=== PATIENT | male | born 1985 | race African-American/Black ===

== ENCOUNTER 2021-03-10 10:08 | Outpatient (REF) | payer OTHER, SELFPAY ==
[2021-03-10 10:40] LABS: MANUAL DIFF FLAG NO
[2021-03-10 10:43] LABS: Basophils Percent Auto 0.2 % (0-2); Eosinophils Absolute Auto 0.2 X10*3/uL (0.0-0.4); Eosinophils Percent Auto 2.1 % (0-4); Hemoglobin 13.9 g/dl (14.0-18.0); Imm Gran Abs Auto 0.03 X10*3/uL (0.00-0.03); Imm Gran Pct Auto 0.3 % (0.0-0.4); Lymphocytes Percent Auto 21.1 % (20-40); Mean Corpuscular HGB Conc 31.6 g/dl (31.0-36.0); Mean Corpuscular Hemoglobin 27.4 pg (27.0-33.0); Mean Corpuscular Volume 86.6 fL (80-98); Mean Platelet Volume 8.2 fL (9.4-12.4); Monocytes Absolute Auto 0.9 X10*3/uL (0.1-1.2); Monocytes Percent Auto 9.4 % (2-11); Neutrophils Absolute Auto 6.3 X10*3/uL (2.0-8.3); Neutrophils Percent Auto 66.9 % (45-73); Platelet Count 220 X10*3/uL (160-400); Red Blood Count 5.08 X10*6/uL (4.60-5.80); Red Cell Distribution Width 13.4 % (11.0-16.0); White Blood Count 9.4 X10*3/uL (4.8-10.8)
[2021-03-10 11:14] LABS: Alanine Aminotransferase 31 U/L (0-40); Albumin Level 4.2 g/dL (3.5-5.0); Alkaline Phosphatase 102 U/L (39-117); Anion Gap 11 (12-20); Aspartate Amino Transferase 19 U/L (5-37); Bilirubin Total 0.7 mg/dL (0.0-1.0); Blood Urea Nitrogen 15 mg/dL (9-16); Calcium 9.1 mg/dL (8.4-10.2); Carbon Dioxide 29 mmol/L (22-29); Chloride 104 mmol/L (96-108); Cholesterol 201 mg/dL; Estimated Glomerular Filt Rate > 60; Glucose Fasting 107 mg/dL (60-99); HDL Cholesterol 34 mg/dL; LDL Cholesterol Calculated 143 mg/dl; Potassium 4.6 mmol/L (3.3-5.1); Sodium 139 mmol/L (135-145); Total Protein 7.1 g/dL (6.5-8.0); Triglycerides 123 mg/dL
[2021-03-10 11:35] LABS: TSH reflex Free T4 2.01 uIU/mL (0.32-4.0); Vitamin D 25-OH Total 22.5 ng/mL (>30)
[2021-03-10 11:48] LABS: Appearance Urine CLEAR; Color Urine YELLOW; Glucose Urine UA NEG (NEG); Leukocyte Esterase Urine NEG (NEG); Nitrite Urine NEG (NEG); Urine Blood NEG (NEG); Urine Ketones NEG (NEG); Urine Protein NEG (NEG-TRACE)
== END 2021-03-10 10:09 | disposition home or self-care (01) ==
LOC: HO.LAB 10:08
PROVIDERS: PCP Internal Medicine; Visit Provider Internal Medicine
DX: Z00.00 Encounter for general adult medical examination without abnormal findings (principal); E55.9 Vitamin D deficiency, unspecified; I10 Essential (primary) hypertension; E78.00 Pure hypercholesterolemia, unspecified
CPT/HCPCS: 36415; 80053; 80061; 81003; 82306; 84443; 85025

== ENCOUNTER 2022-11-27 10:55 | Outpatient (REF) | payer OTHER, SELFPAY ==
[2022-11-27 11:08] LABS: MANUAL DIFF FLAG NO
[2022-11-27 11:30] LABS: Basophils Percent Auto 0.4 % (0-2); Eosinophils Absolute Auto 0.2 X10*3/uL (0.0-0.4); Hematocrit 46.3 % (42.0-52.0); Imm Gran Abs Auto 0.03 X10*3/uL (0.00-0.03); Imm Gran Pct Auto 0.4 % (0.0-0.4); Lymphocytes Absolute Auto 2.1 X10*3/uL (1.2-4.9); Lymphocytes Percent Auto 24.5 % (20-40); Mean Corpuscular HGB Conc 32.4 g/dl (31.0-36.0); Mean Corpuscular Hemoglobin 27.7 pg (27.0-33.0); Mean Corpuscular Volume 85.6 fL (80.0-98.0); Mean Platelet Volume 8.2 fL (9.4-12.4); Monocytes Absolute Auto 0.7 X10*3/uL (0.1-1.2); Monocytes Percent Auto 8.6 % (2-11); Neutrophils Absolute Auto 5.4 x10*3/uL (2.0-8.3); Neutrophils Percent Auto 64.1 % (45-73); Platelet Count 245 X10*3/uL (160-400); Red Blood Count 5.41 X10*6/uL (4.60-5.80); Red Cell Distribution Width 13.3 % (11.0-16.0); White Blood Count 8.4 X10*3/uL (4.8-10.8)
[2022-11-27 12:34] LABS: Appearance Urine Clear; Color Urine Yellow; Glucose Urine UA Negative (Negative); Leukocyte Esterase Urine Negative (Negative); Nitrite Urine Negative (Negative); Specific Gravity - Urine >= 1.030 (1.005-1.025); Urine Blood Negative (Negative); Urine Ketones Trace mg/dL (Negative); Urine Protein Trace mg/dL (Neg-Trace)
[2022-11-27 12:34] LABS: Alanine Aminotransferase 18 U/L (0-40); Albumin Level 4.2 g/dL (3.5-5.0); Alkaline Phosphatase 111 U/L (39-117); Anion Gap 13 (12-20); Aspartate Amino Transferase 14 U/L (5-37); Bilirubin Total 0.7 mg/dL (0.0-1.0); Blood Urea Nitrogen 16 mg/dL (9-16); Calcium 9.5 mg/dL (8.4-10.2); Carbon Dioxide 27 mmol/L (22-29); Chloride 107 mmol/L (96-108); Cholesterol 199 mg/dL; Estimated Glomerular Filt Rate > 60; Glucose Fasting 99 mg/dL (60-99); HDL Cholesterol 35 mg/dL; LDL Cholesterol Calculated 144 mg/dl; Sodium 142 mmol/L (135-145); Total Protein 7.6 g/dL (6.5-8.0); Triglycerides 103 mg/dL
== END 2022-11-27 10:56 | disposition home or self-care (01) ==
LOC: HO.LAB 10:55
PROVIDERS: PCP Internal Medicine; Visit Provider Internal Medicine
DX: Z00.00 Encounter for general adult medical examination without abnormal findings (principal); E55.9 Vitamin D deficiency, unspecified; R30.0 Dysuria; E78.00 Pure hypercholesterolemia, unspecified
CPT/HCPCS: 36415; 80053; 80061; 81003; 82306; 84443; 85025

== ENCOUNTER 2023-02-11 10:20 | Outpatient (AMB) | payer OTHER, SELFPAY ==
--- NOTE | 2023-02-11 10:43 | AM.OFFVISNUR ---
Intake Intake Visit Reasons: tb testing Allergies cat dander Allergy (Unknown, Verified 10/24/22 17:11) Unknown house dust Allergy (Unknown, Verified 10/24/22 17:11) Unknown omeprazole Allergy (Unknown, Verified 10/24/22 17:11) black stool? Office Meds tuberculin PPD Performing Provider: Juni Alvarado MD Administered by: Nelda Ruiz RN on 02/11/23 10:43 Dose Route Admin Location Lot Number Expiration Date [facility] Hotel Clerk 0.1 mL intradermal left forearm [id number] 04/23/26 14348-437-13 [employer] Coding Diagnoses Assessment & Plan Assessment & Plan Orders: Orders AMB PPD Planted Today Z11.1 - Encounter for screening for respiratory tuberculosis
== END 2023-02-11 10:44 | disposition home or self-care (01) ==
PROVIDERS: PCP Internal Medicine; Visit Provider Internal Medicine
DX: Z11.1 Encounter for screening for respiratory tuberculosis (principal)
CPT/HCPCS: 86580

== ENCOUNTER 2024-06-05 13:11 | Outpatient (AMB) | payer OTHER, SELFPAY ==
[2024-06-05 13:21] VITALS: BP 110/72; PULSE 105; O2SAT 95; BMI 38.5
--- NOTE | 2024-06-05 13:21 | A.OFFPC_ITS ---
<Statement entered by YESENIA Hernandez - 06/08/24 13:40> The was called and updated follow labs were ordered for him to do a week before appt. Vital Signs 06/05/24 13:21 Height 5 ft 9 in Weight 261 lb BMI 38.5 BP 110/72 Blood Pressure Location Lt brachial Position Sitting Pulse 105 H Pulse Source Pulse Oximeter Pulse Oximetry (%) 95 Oxygen Delivery Method Room Air Intake Visit Reasons: PE Credit Control Assistant Required: No Accompanied by: Self / Same As Patient Allergies cat dander Allergy (Unknown, Verified 06/05/24 14:23) Unknown house dust Allergy (Unknown, Verified 06/05/24 14:23) Unknown omeprazole Allergy (Unknown, Verified 06/05/24 14:23) black stool? Medication List - Last Reconciled 06/05/24 by YESENIA Hernandez cholecalciferol (vitamin D3) 50 mcg PO DAILY ibuprofen 600 mg PO Q6H PRN Tobacco use date assessed: 06/05/24 Dental Screening Dental Screen Date: 06/05/24 Did you have a dental visit in the last 12 months?: Yes Did you have a dental problem in the last 6 months where you did not have access to dental care?: No Was dental information given to patient?: Patient has dentist HPI PE HPI Details Patient is a 39-year-old male with past medical history of dry skin, vitamin D deficiency, hypercholesterolemia presenting for his annual physical examination The patient reports getting his COVID booster and flu vaccine back in March of this year. Patient reported that he was referred prior to Dermatology; he was unable to make the appointment and would like a new referral placed. The patient also reports having a skin tag on his right lower abdomen that he would like to have addresses as well Patient reports that the skin tag has been there for years and that over the years, it has gradually gotten bigger. The patient denies any pain to the area, change in color, discharge or bleeding. He reports that it does not bother him he just does not like how it looks. Patient reports that otherwise, he has been feeling well. He denies chest pain, shortness of breath, heart palpitation, dizziness or headache. He denies any nausea/vomiting, no abdominal pain and no change in bowel habits noted He denies any acute urinary symptoms flu vaccine 03/26/24 covid booster 03/26/24 both done at [facility] Medical History Obesity (BMI 30-39.9) Pure hypercholesterolemia Vitamin D deficiency Surgical History Hx of nasal septoplasty Family History Father Epilepsy Mother Asthma Brother Epilepsy Maternal Grandmother Ovarian cancer Social History Housing: House Alcohol intake: former Patient Tobacco Use Status: Never used Tobacco e-Cigarette/Vaping Use: Never Used Second Hand Smoke Exposure: Yes service: No Current occupational status: unemployed Cognitive needs: No Hearing needs: No Vision needs: No Questionnaire PHQ-9 Over the last 2 weeks, how often have you been bothered by any of the following problems? 1. Little interest or pleasure in doing things: not at all 2. Feeling down, depressed, or hopeless: not at all 3. Trouble falling or staying asleep, or sleeping too much: not at all 4. Feeling tired or having little energy: not at all 5. Poor appetite or overeating: not at all 6. Feeling bad about yourself - or that you are a failure or have let yourself or your family down: not at all 7. Trouble concentrating on things, such as reading the newspaper or watching television: not at all 8. Moving or speaking so slowly that other people could have noticed. Or the opposite - being so fidgety or restless that you have been moving around a lot more than usual: not at all 9. Thoughts that you would be better off or of hurting yourself in some way: not at all Total score: 0 Depression Screening Interpretation: Negative Depression Screening Done: Yes 57530 - PHQ-9 Billing: Yes Source: Developed by Drs. Sanjeev Katz, Sandra Morales, Julio Salas and colleagues, with an educational julian from [employer]. Thrive Questionnaire Date Thrive assessed: 06/05/24 I am a: Patient What is your living situation today?: I have a steady place to live Within the past 12 months, did the food you bought not last and you didn't have the money to get more?: Never true Within the past 12 months, did you worry whether your food would run out before you got money to buy more?: Never true Do you have trouble paying for medicines?: No Do you have trouble getting transportation to medical appointments?: Yes Do you have trouble paying your heating and electricity bill?: No Do you have trouble taking care of your child, family member or friend?: No Do you have trouble with day-to-day activities such as bathing, preparing meals, shopping, managing finances, etc.?: No Are you currently unemployed and looking for a job?: Yes Are you interested in more education?: No Please select the resources that you would like help with: Transportation Currently or been in a relationship where the following occur: No concerns reported THRIVE Score: 1 AUDIT C Alcohol Use Questionnaire (AUDIT-C) 1. How often do you have a drink containing alcohol?: Never 3. How often do you have six or more drinks on one occasion?: Never Total Score: 0 Score Reviewed/Action Taken: Yes JAMIA-7 AMB Questionnaire JAMIA-7 Date JAMIA - 7 assessed: 06/05/24 Feeling nervous, anxious, or on edge: 0 = Not at all Not being able to stop or control worryin = Not at all Worrying too much about different things: 0 = Not at all Trouble relaxin = Not at all Being so restless that it is hard to sit still: 0 = Not at all Becoming easily annoyed or irritable: 0 = Not at all Feeling afraid as if something awful might happen: 0 = Not at all Total JAMIA-7 score (0-4 normal; 5-9 mild; 10-14 moderate; 15-21 severe): 0 Source: Developed by Drs. Sanjeev Katz, Sandra Morales, Julio Salas and colleagues, with an educational julian from [employer]. JAMIA-7 Assessment Billing JAMIA-7 Assessment Tool: JAMIA-7 Assessment 21673 Review of Systems Const Details: Denies chills, Denies fatigue, Denies fever(s), Denies headache(s) and Denies weakness HEENT Denies change in vision, Denies dizziness, Denies headache(s), Denies hearing loss, Denies nasal congestion, Denies sinus pain, Denies sinus pressure and Denies sore throat Card Denies chest pain, Denies lightheadedness, Denies dyspnea and Denies other (palpitations) Resp Denies cough, Denies dyspnea and Denies wheezing GI Denies abdominal pain, Denies melena, Denies hematochezia, Denies change in bowel habits, Denies dyspepsia and Denies nausea Denies hematuria and Denies dysuria Musc Denies abnormal gait, Denies myalgias, Denies arthralgias, Denies numbness and Denies tingling Skin/Breast Denies rash, Denies unusual bruising and Denies wounds, reports skin tag to right lower abdomen, reports dry skin to face and scalp Neuro Denies abnormal gait, Denies dizziness, Denies headache(s), Denies memory loss, Denies numbness, Denies Sensory deficit (Neuro), Denies tingling and Denies weakness Psych Denies anxiety, Denies depression and Denies memory loss Endo Denies cold intolerance, Denies fatigue, Denies heat intolerance, Denies polydipsia and Denies polyuria [place]/Lymph Denies easy bleeding and Denies easy bruising Aller/Immun Denies wheezing Physical exam (Primary Care) Vital Signs: Last Vital Signs Pulse 105 H 06/05/24 13:21 BP 110/72 06/05/24 13:21 Pulse Ox 95 06/05/24 13:21 Oxygen Delivery Method Room Air 06/05/24 13:21 BMI result Body Mass Index 38.5 Tobacco/Smoking Status: Tobacco use Status Tobacco use date assessed 06/05/24 06/05/24 13:25 Patient Tobacco Use Status Never used Tobacco 06/05/24 13:25 e-Cigarette/Vaping Use Never Used 06/05/24 13:25 PHQ-9: PHQ-9 Score PHQ-9: Total score 0 06/06/24 23:23 Depression Screening Interpretation: Negative Thrive Assessment: Date of Thrive Assessment Date Thrive assessed 06/05/24 06/05/24 13:25 Currently or been in a relationship where the following occur: No concerns reported Const Other: General: no acute distress, well developed, alert and awake Nutritional Appearance: well nourished Orientation/consciousness: patient oriented x3 HENMT Head: Yes normocephalic and Yes atraumatic Ears: hearing grossly normal bilaterally and TM's normal bilaterally General nose exam: Normal external nose present and Normal nares present Mouth: Normal oral and palatal mucosa present and moist mucous membranes Teeth and gingiva: dentition normal Throat: Yes oropharynx normal Eyes Pupils: Equal, round and reactive pupils present and Pupil accommodation reflex normal EOM: EOMs intact bilaterally Neck Neck: Yes normal visual inspection, Yes no lymphadenopathy and Yes trachea midline Thyroid: Thyroid normal Carotids: no bruits Lymphatic: no lymphadenopathy noted Chest Chest palpation & inspection: normal inspection of the chest Resp Effort & Inspection: normal respiratory effort Auscultation: clear to auscultation bilaterally Cardio Rate: regular rate Rhythm: regular rhythm Heart sounds: S1 normal heart sound present, S2 normal heart sound present, no gallops, no murmurs and no rubs Bruits: no abdominal aortic bruits and no carotid bruits GI Palpation (GI): No Abdominal aortic bruit present, Soft to palpation, nontender, No hepatosplenomegaly present and No Rebound tenderness present Auscultation: normal bowel sounds General: Yes no CVA tenderness Back/Spine/Pelvis Back: no CVA tenderness Cervical Spine: cervical ROM normal and No Cervical spine tenderness Thoracic/Lumbar Spine: thoraco-lumbar ROM normal, No pain with thoraco-lumbar ROM, No thoracic spinal tenderness and No lumbar spinal tenderness Skin General: warm and dry. Normal skin color. Normal skin turgor Lesions: large, raised, flesh color lesion to lower abdemen Rashes: no rashes Trauma: no lacerations or abrasions Wounds: no wounds Nails: normal Neuro General: patient oriented x3, gait normal and CN's II-XI intact bilaterally Cranial nerves: Yes Equal, round and reactive pupils present Cognition (Neuro): normal cognition Gait exam (Neuro): Normal gait present Motor exam (neuro): 5/5 motor strength present throughout Sensory Exam: No Sensory deficit (Neuro) Deep tendon reflexes (DTR's): Right patellar reflex intensity grade: 2+ and Left patellar reflex intensity grade: 2+ Extrem General: Yes normal to inspection, No edema and No calf tenderness Psych Appearance: grossly normal Affect: normal affect Attitude: cooperative Thought process: Normal thought process present Results Reviewed Results Reviewed: Laboratory Tests 11/27/22 11/27/22 11:06 11:18 WBC 8.4 RBC 5.41 Hgb 15.0 Hct 46.3 Plt Count 245 Sodium 142 Potassium 5.0 Chloride 107 BUN 16 Creatinine 1.00 Estimated GFR > 60 Fasting Glucose 99 Calcium 9.5 AST 14 ALT 18 Alkaline Phosphatase 111 Triglycerides 103 Cholesterol 199 LDL Cholesterol, Calc 144 HDL Cholesterol 35 25-OH Vitamin D Total 26.0 TSH 2.20 Urine Color Yellow Urine Appearance Clear Ur Specific [place] >= 1.030 H Urine Protein Trace Urine Glucose (UA) Negative Urine Ketones Trace Urine Blood Negative Urine Nitrite Negative Coding Level of Care Code Est Pt Prev Care 40-64y(01325) Diagnoses Annual physical exam Z00.00 Pure hypercholesterolemia E78.00 Vitamin D deficiency E55.9 Skin lesion L98.9 Dry skin L85.3 Obesity (BMI 30-39.9) E66.9 Additional Codes JAMIA-7 Assessment Billing - JAMIA-7 Assessment Tool: JAMIA-7 Assessment 91134 ([id number]) PHQ-9 - 42964 - PHQ-9 Billing: Yes ([id number]) Assessment & Plan Assessment & Plan (1) Annual physical exam: Code(s): Z00.00 - Encounter for general adult medical examination without abnormal findings Category: Medical Plan: The patient is up-to-date on his vaccines. No screening tests due today per age recommendations Will send him for updated labs today (2) Pure hypercholesterolemia: Code(s): E78.00 - Pure hypercholesterolemia, unspecified Category: Medical Plan: Reinforced dietary management and activity as tolerated - low cholesterol diet reinforced Total cholesterol was 199, LDL 144, HDL 35 on his labs done last year and we will recheck his labs and fasting lipids today for follow up He is advised that if his cholesterol levels are still elevated or are higher on his current labs when he gets them done, would recommend that he start taking cholesterol-lowering medication (3) Vitamin D deficiency: Code(s): E55.9 - Vitamin D deficiency, unspecified Category: Medical Plan: The patient is currently on vitamin D3 supplement. New lab orders were placed today to re-evaluate (4) Skin lesion: Code(s): L98.9 - Disorder of the skin and subcutaneous tissue, unspecified Category: Medical Plan: (+) large, raised, flesh-colored lesion over the right lower abdomen Will refer him to surgery to have this evaluated and surgically excised if appropriate (5) Dry skin: Code(s): L85.3 - Xerosis cutis Category: Medical Plan: Dry flaky skin to face and scalp ongoing. The patient was unable to make it to his previous referral to dermatology. A new dermatology referral was placed to Dr. Quevedo (6) Obesity (BMI 30-39.9): Code(s): E66.9 - Obesity, unspecified Category: Medical Plan: Reinforced diet/exercise as tolerated/lose weight - he has lost 3 lbs since his last visit last year (October 2022) Plan To return in 1 year for his next annual physical examination Orders: Orders TSH reflex Free T4 06/05/24 Z00.00 - Encounter for general adult medical examination without abnormal findings Complete Blood Count Auto Diff 06/05/24 Z00.00 - Encounter for general adult medical examination without abnormal findings UA CC w/rflx Micro + Cult 06/05/24 Z00.00 - Encounter for general adult medical examination without abnormal findings Vitamin D 25-OH Total 06/05/24 E55.9 - Vitamin D deficiency, unspecified Lipid Panel 06/05/24 E78.00 - Pure hypercholesterolemia, unspecified Lipid Panel 4 Months E78.00 - Pure hypercholesterolemia, unspecified Comprehensive [place]. Panel Fast 4 Months E78.00 - Pure hypercholesterolemia, unspecified Comprehensive [place]. Panel Fast 06/05/24 Z00.00 - Encounter for general adult medical examination without abnormal findings Referrals General Surgery Referral L98.9 - Disorder of the skin and subcutaneous tissue, unspecified Dermatology Referral L85.3 - Xerosis cutis Medications: New atorvastatin 10 mg PO BEDTIME 30 tabs 3RF 4 months E78.00 - Pure hypercholesterolemia, unspecified
== END 2024-06-05 14:07 | disposition home or self-care (01) ==
PROVIDERS: PCP Internal Medicine; Visit Provider Internal Medicine
DX: Z00.00 Encounter for general adult medical examination without abnormal findings (principal); E78.00 Pure hypercholesterolemia, unspecified; Z68.38 Body mass index [BMI] 38.0-38.9, adult; E66.812 Obesity, class 2; E55.9 Vitamin D deficiency, unspecified; L98.9 Disorder of the skin and subcutaneous tissue, unspecified; L85.3 Xerosis cutis

== ENCOUNTER 2024-06-05 13:11 | Outpatient (REF) | payer OTHER, SELFPAY ==
[2024-06-05 14:28] LABS: MANUAL DIFF FLAG NO
[2024-06-05 14:38] LABS: Basophils Percent Auto 0.3 % (0-2); Eosinophils Absolute Auto 0.1 X10*3/uL (0.0-0.4); Eosinophils Percent Auto 1.3 % (0-4); Hematocrit 42.9 % (42.0-52.0); Hemoglobin 14.5 g/dl (14.0-18.0); Imm Gran Abs Auto 0.02 X10*3/uL (0.00-0.03); Imm Gran Pct Auto 0.3 % (0.0-0.4); Lymphocytes Absolute Auto 1.6 X10*3/uL (1.2-4.9); Lymphocytes Percent Auto 21.5 % (20-40); Mean Corpuscular HGB Conc 33.8 g/dl (31.0-36.0); Mean Corpuscular Hemoglobin 28.5 pg (27.0-33.0); Mean Corpuscular Volume 84.4 fL (80.0-98.0); Mean Platelet Volume 8.2 fL (9.4-12.4); Monocytes Absolute Auto 0.6 X10*3/uL (0.1-1.2); Monocytes Percent Auto 8.2 % (2-11); Neutrophils Absolute Auto 5.2 x10*3/uL (2.0-8.3); Neutrophils Percent Auto 68.4 % (45-73); Platelet Count 220 X10*3/uL (160-400); Red Blood Count 5.08 X10*6/uL (4.60-5.80); Red Cell Distribution Width 13.2 % (11.0-16.0); White Blood Count 7.6 X10*3/uL (4.8-10.8)
[2024-06-05 14:42] LABS: Appearance Urine Turbid; Color Urine Dark Yellow; Glucose Urine UA Negative (Negative); Leukocyte Esterase Urine Negative (Negative); Nitrite Urine Negative (Negative); PH 5.5 (5.0-9.0); Specific Gravity - Urine >= 1.030 (1.005-1.025); Urine Blood Negative (Negative); Urine Ketones Negative (Negative); Urine Protein Trace mg/dL (Neg-Trace)
[2024-06-05 15:07] LABS: Albumin Level 4.2 g/dL (3.5-5.0); Anion Gap 11 (12-20); Aspartate Amino Transferase 24 U/L (5-37); Bilirubin Total 0.7 mg/dL (0.0-1.0); Blood Urea Nitrogen 15 mg/dL (9-16); Calcium 9.3 mg/dL (8.4-10.2); Carbon Dioxide 28 mmol/L (22-29); Chloride 106 mmol/L (96-108); Cholesterol 222 mg/dL (<200); Estimated Glomerular Filt Rate > 60; Glucose Fasting 102 mg/dL (60-99); HDL Cholesterol 35 mg/dL (>40); LDL Cholesterol Calculated 168 mg/dL (<100); Sodium 141 mmol/L (135-145); Total Protein 7.8 g/dL (6.5-8.0); Triglycerides 96 mg/dL (<150)
[2024-06-05 15:26] LABS: Alanine Aminotransferase 34 U/L (0-40); Alkaline Phosphatase 100 U/L (39-117)
[2024-06-05 15:28] LABS: TSH reflex Free T4 1.95 uIU/mL (0.32-4.0); Vitamin D 25-OH Total 25.4 ng/mL (>30)
== END 2024-06-05 13:12 | disposition home or self-care (01) ==
LOC: HO.LAB 13:11
PROVIDERS: PCP Internal Medicine; Visit Provider Internal Medicine
DX: Z00.01 Encounter for general adult medical examination with abnormal findings (principal); E78.00 Pure hypercholesterolemia, unspecified; E55.9 Vitamin D deficiency, unspecified; L98.9 Disorder of the skin and subcutaneous tissue, unspecified; L85.3 Xerosis cutis; E66.9 Obesity, unspecified
CPT/HCPCS: 36415; 80053; 80061; 81003; 82306; 84443; 85025; 96127; 99396

== ENCOUNTER 2024-07-14 08:21 | Outpatient (AMB) | payer OTHER, SELFPAY ==
[2024-07-14 08:34] VITALS: BP 126/84; PULSE 72; BMI 38.5
--- NOTE | 2024-07-14 08:34 | A.OFFVIS_ITS ---
Vital Signs 07/14/24 08:34 Height 5 ft 9 in Weight 261 lb BMI 38.5 BP 126/84 Blood Pressure Location Rt brachial Position Sitting Pulse 72 Intake Visit Reasons: large right lower abdomen raised Intake Note: Patient referred by pcp Nick WATSON for skin tag on Rt lower abd. Present for 1yr. Patient c/o: denies bleeding, itch. Casino Runner Required: No Accompanied by: Self / Same As Patient Allergies cat dander Allergy (Unknown, Verified 07/14/24 08:38) Unknown house dust Allergy (Unknown, Verified 07/14/24 08:38) Unknown omeprazole Allergy (Unknown, Verified 07/14/24 08:38) black stool? Medication List - Last Reconciled 07/14/24 by Abdullahi Nolasco MD atorvastatin 10 mg PO BEDTIME 4 months cholecalciferol (vitamin D3) 50 mcg PO DAILY ibuprofen 600 mg PO Q6H PRN HPI Comments Details: Patient presents with a growth involving his right anterior thigh. He has had this several years time. His increasing in size, becoming more symptomatic. He would like to have it removed. He has no such lesions elsewhere. Chart was reviewed and patient evaluate [facility] Medical History Vitamin D deficiency Pure hypercholesterolemia Obesity (BMI 30-39.9) Surgical History Hx of nasal septoplasty Family History Father Epilepsy Mother Asthma Brother Epilepsy Maternal Grandmother Ovarian cancer Social History Housing: House Alcohol intake: former Patient Tobacco Use Status: Never used Tobacco e-Cigarette/Vaping Use: Never Used Second Hand Smoke Exposure: Yes service: No Current occupational status: unemployed Cognitive needs: No Hearing needs: No Vision needs: No Physical Exam Vital Signs: Last Vital Signs Pulse 72 07/14/24 08:34 BP 126/84 07/14/24 08:34 BMI result Body Mass Index 38.5 Extrem Other: Patient was a roughly 2 x 2 cm exophytic mass with a stalk protruding from his right anterior thigh. Office Procedures Excision Details: Risks, benefits, alternatives of upper thigh mass excision were reviewed with the patient included but not limited to bleeding, infection, recurrence, numbness, pain, scarring the patient wished to proceed. After appropriate positioning, patient underwent 1% lidocaine and Betadine prep and uneventful excision of this process measuring roughly 2 x 2 cm. Specimen sent to pathology. Wound base cauterized with silver nitrate followed by bacitracin and sterile dressing. Patient tolerated procedure well. 45959-lxons/arms/legs 2.1-3cm Procedure code (CPT) selection complete Office Meds lidocaine 1 %-epinephrine 1:100,000 injection solution Performing Provider: Abdullahi Nolasco MD Performing Location: [facility] [place] [facility] Administered by: Abdullahi Nolasco MD on 07/14/24 09:40 Dose Route Admin Location Dispensed Lot Number Expiration Date [facility] Department Of Sociology Chair 10 mL Infiltration 10 mL Assessment & Plan Assessment & Plan (1) Localized skin mass, lump, or swelling: Code(s): R22.9 - Localized swelling, mass and lump, unspecified Category: Surgical Plan: Patient was been given local instructions including ice periodically, bacitracin each day, and will otherwise follow-up p.r.n.. All questions answered. Orders: Orders AMB Excision Today R22.9 - Localized swelling, mass and lump, unspecified Medications: New lidocaine-epinephrine 1 %-1:100,000 10 mL Infiltration ONCE 30 mL 0RF R22.9 - Localized swelling, mass and lump, unspecified Coding Level of Care Code New Pt Level 5 (77169) Diagnoses Localized skin mass, lump, or swelling R22.9 CPT Codes Trunk/Arms/Legs - CPT: 27968-isjsp/arms/legs 2.1-3cm ([id number])
== END 2024-07-14 09:10 | disposition home or self-care (01) ==
PROVIDERS: PCP Internal Medicine; Visit Provider Surgery
DX: R22.9 Localized swelling, mass and lump, unspecified (principal)
CPT/HCPCS: 11403; 99204

== ENCOUNTER 2024-07-14 08:21 | Outpatient (REF) | payer OTHER, SELFPAY | END 2024-07-14 08:22 | disposition home or self-care (01) | LOC: HO.LNP 08:21 | PROVIDERS: PCP Internal Medicine; Visit Provider Surgery | DX: R22.9 Localized swelling, mass and lump, unspecified (principal) | CPT/HCPCS: 88304 ==

== ENCOUNTER 2025-02-04 10:44 | Outpatient (AMB) | payer OTHER, SELFPAY ==
--- NOTE | 2025-02-04 11:03 | MHC.PC.OV ---
Vital Signs 02/04/25 11:04 Height 5 ft 9 in Weight 255 lb BMI 37.7 BP 110/80 Blood Pressure Location Lt brachial Position Sitting Pulse 115 H Pulse Source Pulse Oximeter Pulse Oximetry (%) 94 Oxygen Delivery Method Room Air Intake Visit Reasons: Medication f/u Chin Strap Sewer Required: No Accompanied by: Self / Same As Patient Allergies cat dander Allergy (Unknown, Verified 02/04/25 11:34) Unknown house dust Allergy (Unknown, Verified 02/04/25 11:34) Unknown omeprazole Allergy (Unknown, Verified 02/04/25 11:34) black stool? Medication List - Last Reconciled 02/04/25 by Juni Alvarado MD atorvastatin 10 mg PO BEDTIME 4 months cholecalciferol (vitamin D3) 50 mcg PO DAILY ibuprofen 600 mg PO Q6H PRN Tobacco use date assessed: 02/04/25 Dental Screening Dental Screen Date: 02/04/25 Did you have a dental visit in the last 12 months?: No Did you have a dental problem in the last 6 months where you did not have access to dental care?: No Was dental information given to patient?: No HPI Medication f/u HPI Details Patient comes in today for his follow-up visit States that he feels okay He denies any headaches or dizziness Denies any chest pains, no shortness of breath No nausea/vomiting, no abdominal pain No change in bowel habits noted He was not able to get it follow-up labs done prior to coming in today - states that he can go and get them done immediately after his appointment [facility] Medical History Vitamin D deficiency Pure hypercholesterolemia Obesity (BMI 30-39.9) Surgical History Hx of nasal septoplasty Family History Father Epilepsy Mother Asthma Brother Epilepsy Maternal Grandmother Ovarian cancer Social History Housing: House Alcohol intake: former Patient Tobacco Use Status: Never used Tobacco e-Cigarette/Vaping Use: Never Used Second Hand Smoke Exposure: Yes service: No Current occupational status: unemployed Cognitive needs: No Hearing needs: No Vision needs: No Questionnaire PHQ-9 Over the last 2 weeks, how often have you been bothered by any of the following problems? 1. Little interest or pleasure in doing things: not at all 2. Feeling down, depressed, or hopeless: not at all 3. Trouble falling or staying asleep, or sleeping too much: not at all 4. Feeling tired or having little energy: not at all 5. Poor appetite or overeating: not at all 6. Feeling bad about yourself - or that you are a failure or have let yourself or your family down: not at all 7. Trouble concentrating on things, such as reading the newspaper or watching television: not at all 8. Moving or speaking so slowly that other people could have noticed. Or the opposite - being so fidgety or restless that you have been moving around a lot more than usual: not at all 9. Thoughts that you would be better off or of hurting yourself in some way: not at all Total score: 0 Depression Screening Interpretation: Negative Depression Screening Done: Yes 18047 - PHQ-9 Billing: Yes Source: Developed by Drs. Sanjeev Katz, Sandra Morales, Julio Salas and colleagues, with an educational julian from [employer]. Thrive Questionnaire Date Thrive assessed: 02/04/25 I am a: Patient What is your living situation today?: I have a steady place to live Within the past 12 months, did the food you bought not last and you didn't have the money to get more?: Sometimes True Within the past 12 months, did you worry whether your food would run out before you got money to buy more?: Sometimes True Do you have trouble paying for medicines?: No Do you have trouble getting transportation to medical appointments?: Yes Do you have trouble paying your heating and electricity bill?: No Do you have trouble taking care of your child, family member or friend?: No Do you have trouble with day-to-day activities such as bathing, preparing meals, shopping, managing finances, etc.?: No Are you currently unemployed and looking for a job?: Yes Are you interested in more education?: I choose not to answer this question Please select the resources that you would like help with: None Currently or been in a relationship where the following occur: I choose not to answer THRIVE Score: 3 AUDIT C Alcohol Use Questionnaire (AUDIT-C) 1. How often do you have a drink containing alcohol?: Never 3. How often do you have six or more drinks on one occasion?: Never Total Score: 0 Score Reviewed/Action Taken: Yes JAMIA-7 AMB Questionnaire JAMIA-7 Date JAMIA - 7 assessed: 02/04/25 Feeling nervous, anxious, or on edge: 0 = Not at all Not being able to stop or control worryin = Not at all Worrying too much about different things: 0 = Not at all Trouble relaxin = Not at all Being so restless that it is hard to sit still: 0 = Not at all Becoming easily annoyed or irritable: 1 = Several days Feeling afraid as if something awful might happen: 0 = Not at all Total JAMIA-7 score (0-4 normal; 5-9 mild; 10-14 moderate; 15-21 severe): 1 Source: Developed by Drs. Sanjeev Katz, Sandra Morales, Julio Salas and colleagues, with an educational julian from [employer]. Review of Systems Const Denies chills, Denies fatigue, Denies fever(s) and Denies headache(s) ENT Denies dysphagia, Denies dizziness, Denies otalgia, Denies headache(s), Denies neck pain, Denies odynophagia and Denies sore throat Card Denies chest pain, Denies rapid heart rate, Denies irregular heart rhythm, Denies palpitations and Denies dyspnea Resp Denies chest congestion, Denies cough and Denies dyspnea GI Denies abdominal pain, Denies constipation, Denies dysphagia, Denies heartburn, Denies diarrhea, Denies nausea, Denies odynophagia and Denies vomiting Denies difficulty urinating, Denies dysuria, Denies nocturia and Denies urinary frequency Musc Denies back pain, Denies arthralgias and Denies neck pain Skin/Breast Denies rash Neuro Denies dizziness, Denies headache(s) and Denies paresthesias Endo Denies fatigue and Denies palpitations Physical exam (Primary Care) Vital Signs: Last Vital Signs Pulse 115 H 02/04/25 11:04 BP 110/80 02/04/25 11:04 Pulse Ox 94 02/04/25 11:04 Oxygen Delivery Method Room Air 02/04/25 11:04 BMI result Body Mass Index 37.7 Tobacco/Smoking Status: Tobacco use Status Tobacco use date assessed 02/04/25 02/04/25 11:09 Patient Tobacco Use Status Never used Tobacco 02/04/25 11:09 e-Cigarette/Vaping Use Never Used 02/04/25 11:09 PHQ-9: PHQ-9 Score PHQ-9: Total score 0 02/04/25 11:35 Depression Screening Interpretation: Negative Thrive Assessment: Date of Thrive Assessment Date Thrive assessed 02/04/25 02/04/25 11:09 Currently or been in a relationship where the following occur: I choose not to answer Const General: no acute distress and alert HENMT Ears: TM's normal bilaterally and EAC's normal Throat: Yes posterior oropharynx normal and Yes tonsils normal (no TP congestion) Neck Neck: Yes supple and No lymphadenopathy Thyroid: Thyroid normal Resp Auscultation: clear to auscultation bilaterally, no rales and no wheezes Cardio Rate: regular rate Rhythm: regular rhythm Heart sounds: no murmurs GI Palpation (GI): Soft to palpation and nontender Auscultation: normal bowel sounds General: Yes no CVA tenderness Back/Spine/Pelvis Back: no CVA tenderness Thoracic/Lumbar Spine: No lumbar spinal tenderness Skin Rashes: no rashes Extrem General: Yes no clubbing, cyanosis or edema Coding Level of Care Code Est Pt Level 4 (38204) Diagnoses Pure hypercholesterolemia E78.00 Vitamin D deficiency E55.9 Obesity (BMI 30-39.9) E66.9 Additional Codes PHQ-9 - 91185 - PHQ-9 Billing: Yes ([id number]) Assessment & Plan Assessment & Plan (1) Pure hypercholesterolemia: Code(s): E78.00 - Pure hypercholesterolemia, unspecified Category: Medical Plan: Will have patient go and get his labs and fasting lipids rechecked MAYA; per request, will also include a T spot test today with his labs Reinforced dietary restrictions Continue Atorvastatin 10 mg QD Will have patient recheck his labs and fasting lipids again in an a few months for follow-up and he is reminded to try to get these done just before he comes back for his next annual physical examination (2) Vitamin D deficiency: Code(s): E55.9 - Vitamin D deficiency, unspecified Category: Medical Plan: Continue Vitamin D3 2000 units QD (3) Obesity (BMI 30-39.9): Code(s): E66.9 - Obesity, unspecified Category: Medical Plan: Reinforced diet/exercise as tolerated/lose weight Plan To return as scheduled in May 2025 for his next annual physical examination Orders: Orders Comprehensive [place]. Panel Fast 02/04/25 E78.00 - Pure hypercholesterolemia, unspecified Complete Blood Count Auto Diff 4 Months D64.9 - Anemia, unspecified, Z00.00 - Encounter for general adult medical examination without abnormal findings Comprehensive [place]. Panel Fast 4 Months E78.00 - Pure hypercholesterolemia, unspecified, Z00.00 - Encounter for general adult medical examination without abnormal findings TSH reflex Free T4 4 Months E78.00 - Pure hypercholesterolemia, unspecified, Z00.00 - Encounter for general adult medical examination without abnormal findings Vitamin D 25-OH Total 4 Months E55.9 - Vitamin D deficiency, unspecified, Z00.00 - Encounter for general adult medical examination without abnormal findings Lipid Panel 02/04/25 E78.00 - Pure hypercholesterolemia, unspecified T Spot TB 02/04/25 Z11.1 - Encounter for screening for respiratory tuberculosis Lipid Panel 4 Months E78.00 - Pure hypercholesterolemia, unspecified, Z00.00 - Encounter for general adult medical examination without abnormal findings UA CC w/rflx Micro + Cult 4 Months R30.0 - Dysuria, Z00.00 - Encounter for general adult medical examination without abnormal findings
[2025-02-04 11:04] VITALS: BP 110/80; PULSE 115; O2SAT 94; BMI 37.7
== END 2025-02-04 11:39 | disposition home or self-care (01) ==
LOC: HO.HMCH 10:45
PROVIDERS: PCP Internal Medicine; Visit Provider Internal Medicine
DX: E78.00 Pure hypercholesterolemia, unspecified (principal); E55.9 Vitamin D deficiency, unspecified; E66.9 Obesity, unspecified; Z68.37 Body mass index [BMI] 37.0-37.9, adult

== ENCOUNTER 2025-02-04 10:44 | Outpatient (REF) | payer OTHER, SELFPAY ==
[2025-02-04 12:36] LABS: Alanine Aminotransferase 40 U/L (0-40); Albumin Level 4.4 g/dL (3.5-5.0); Alkaline Phosphatase 105 U/L (39-117); Anion Gap 10 (12-20); Aspartate Amino Transferase 29 U/L (5-37); Blood Urea Nitrogen 17 mg/dL (9-16); Calcium 9.3 mg/dL (8.4-10.2); Carbon Dioxide 29 mmol/L (22-29); Chloride 109 mmol/L (96-108); Cholesterol 210 mg/dL (<200); Estimated Glomerular Filt Rate > 60; HDL Cholesterol 31 mg/dL (>40); Potassium 4.5 mmol/L (3.3-5.1); Sodium 143 mmol/L (135-145); Total Protein 7.8 g/dL (6.5-8.0); Triglycerides 103 mg/dL (<150)
[2025-02-07 19:13] LABS: TS Negative Control Passed; TS Panel A 0; TS Panel B 0; TS Positive Control Passed; TSpotTB Negative (Negative)
== END 2025-02-04 10:45 | disposition home or self-care (01) ==
LOC: HO.LAB 10:44
PROVIDERS: PCP Internal Medicine; Visit Provider Internal Medicine
DX: Z11.1 Encounter for screening for respiratory tuberculosis (principal); E78.00 Pure hypercholesterolemia, unspecified; E55.9 Vitamin D deficiency, unspecified; E66.9 Obesity, unspecified; Z68.37 Body mass index [BMI] 37.0-37.9, adult; Z71.3 Dietary counseling and surveillance
CPT/HCPCS: 36415; 80053; 80061; 86481; 96127; 99212

== ENCOUNTER 2025-06-08 12:56 | Outpatient (REF) | payer OTHER, SELFPAY ==
[2025-06-08 14:42] LABS: MANUAL DIFF FLAG NO
[2025-06-08 15:26] LABS: Hematocrit 46.6 % (42.0-52.0); Hemoglobin 15.1 g/dl (14.0-18.0); Imm Gran Abs Auto 0.05 X10*3/uL (0.00-0.03); Imm Gran Pct Auto 0.6 % (0.0-0.4); Lymphocytes Absolute Auto 1.9 X10*3/uL (1.2-4.9); Mean Corpuscular HGB Conc 32.4 g/dl (31.0-36.0); Mean Corpuscular Hemoglobin 28.2 pg (27.0-33.0); Mean Corpuscular Volume 86.9 fL (80.0-98.0); NRBC Abs Auto 0.000 X10*3/uL (0.0-0.012); NRBC Pct Auto 0.0 /100WBC (0.0-0.2); Platelet Count 226 X10*3/uL (160-400); Red Blood Count 5.36 X10*6/uL (4.60-5.80); White Blood Count 8.8 X10*3/uL (4.8-10.8)
[2025-06-08 15:33] LABS: Appearance Urine Clear; Glucose Urine UA Negative (Negative); PH 5.5 (5.0-9.0); Specific Gravity - Urine >= 1.030 (1.005-1.025)
[2025-06-08 17:02] LABS: Alanine Aminotransferase 40 U/L (0-40); Albumin Level 4.4 g/dL (3.5-5.0); Alkaline Phosphatase 101 U/L (39-117); Anion Gap 9 (12-20); Aspartate Amino Transferase 28 U/L (5-37); Blood Urea Nitrogen 16 mg/dL (9-16); Calcium 9.1 mg/dL (8.4-10.2); Carbon Dioxide 29 mmol/L (22-29); Chloride 106 mmol/L (96-108); Cholesterol 222 mg/dL (<200); Estimated Glomerular Filt Rate > 60; HDL Cholesterol 36 mg/dL (>40); Potassium 4.2 mmol/L (3.3-5.1); Sodium 140 mmol/L (135-145); Total Protein 7.7 g/dL (6.5-8.0); Triglycerides 117 mg/dL (<150)
== END 2025-06-08 12:57 | disposition home or self-care (01) ==
LOC: HO.LAB 12:56
PROVIDERS: PCP Internal Medicine; Visit Provider Internal Medicine
DX: Z00.00 Encounter for general adult medical examination without abnormal findings (principal); R30.0 Dysuria; E78.00 Pure hypercholesterolemia, unspecified; E55.9 Vitamin D deficiency, unspecified; D64.9 Anemia, unspecified; M79.602 Pain in left arm; E66.01 Morbid (severe) obesity due to excess calories; Z68.41 Body mass index [BMI] 40.0-44.9, adult
CPT/HCPCS: 36415; 80053; 80061; 81003; 82306; 84443; 85025; 99396

== ENCOUNTER 2025-06-08 12:56 | Outpatient (AMB) | payer OTHER, SELFPAY ==
--- NOTE | 2025-06-08 13:38 | MHC.PC.OV ---
Vital Signs 06/08/25 13:39 Height 5 ft 9 in Weight 278 lb 6 oz BMI 41.1 BP 120/72 Blood Pressure Location Lt brachial Position Sitting Pulse 103 H Pulse Source Pulse Oximeter Temp 97.1 F Temp Source Temporal Artery Scan Pulse Oximetry (%) 92 Oxygen Delivery Method Room Air Intake Visit Reasons: Annual Exam Intake Note: Patient is here today for a physical. Door To Door Selling Distributor Required: No Etcher Electrolytic: Not Required per policy Accompanied by: Self / Same As Patient Allergies cat dander Allergy (Unknown, Verified 06/08/25 14:03) Unknown house dust Allergy (Unknown, Verified 06/08/25 14:03) Unknown omeprazole Allergy (Unknown, Verified 06/08/25 14:03) black stool? Medication List - Last Reconciled 06/08/25 by Juni Alvarado MD atorvastatin 10 mg PO BEDTIME 4 months cholecalciferol (vitamin D3) 50 mcg PO DAILY ibuprofen 600 mg PO Q6H PRN Tobacco use date assessed: 06/08/25 Dental Screening Dental Screen Date: 02/04/25 HPI Annual Exam HPI Details Patient comes in today for his annual physical examination States that he feels okay except for on and off aching pain over his left antecubital area over the past couple of weeks He denies any recent injury or trauma to his arm but states that he has been doing a lot more than usual of heavy lifting at work lately; patient is left-handed Notes that the pain would usually start occurring towards the late afternoon hours and that he has been applying some warm compress over his left antecubital area when the pain occurs, with some relief of his symptoms He denies any associated left arm weakness with the pain and that bending his left elbow when he has the pain does not make it feel worse or feel better He denies any pain over his elbow (olecranon area) or over his left shoulder and left wrist He denies any headaches or dizziness Denies any chest pains, no increased SOB No nausea/vomiting, no abdominal pain No change in bowel habits noted He denies any acute urinary symptoms He was not able to get his previously ordered labs done prior to his appointment today [facility] Medical History Vitamin D deficiency Pure hypercholesterolemia Obesity (BMI 30-39.9) Surgical History Hx of nasal septoplasty Family History Father Epilepsy Mother Asthma Brother Epilepsy Maternal Grandmother Ovarian cancer Social History Housing: House Alcohol intake: former Patient Tobacco Use Status: Never used Tobacco e-Cigarette/Vaping Use: Never Used Second Hand Smoke Exposure: Yes service: No Current occupational status: unemployed Cognitive needs: No Hearing needs: No Vision needs: No Questionnaire Thrive Questionnaire Date Thrive assessed: 02/02/25 I am a: Patient What is your living situation today?: I have a steady place to live Within the past 12 months, did the food you bought not last and you didn't have the money to get more?: Sometimes True Within the past 12 months, did you worry whether your food would run out before you got money to buy more?: Sometimes True Do you have trouble paying for medicines?: No Do you have trouble getting transportation to medical appointments?: Yes Do you have trouble paying your heating and electricity bill?: No Do you have trouble taking care of your child, family member or friend?: No Do you have trouble with day-to-day activities such as bathing, preparing meals, shopping, managing finances, etc.?: No Are you currently unemployed and looking for a job?: Yes Are you interested in more education?: I choose not to answer this question Please select the resources that you would like help with: None Currently or been in a relationship where the following occur: I choose not to answer THRIVE Score: 3 JAMIA-7 AMB Questionnaire JAMIA-7 Date JAMIA - 7 assessed: 02/04/25 Source: Developed by Drs. Sanjeev Katz, Sandra Morales, Julio Salas and colleagues, with an educational julian from [email or web address]. Review of Systems Const Denies chills, Denies fatigue, Denies fever(s), Denies headache(s), Denies malaise and Denies weakness Eyes Denies blurry vision, Denies change in vision, Denies irritation and Denies itchy eyes ENT Denies dysphagia, Denies dizziness, Denies otalgia, Denies headache(s), Denies nasal congestion, Denies neck pain, Denies odynophagia and Denies sore throat Card Denies rapid heart rate, Denies irregular heart rhythm, Denies palpitations and Denies dyspnea Resp Denies chest congestion, Denies cough, Denies dyspnea and Denies wheezing GI Denies abdominal pain, Denies bloating, Denies constipation, Denies dysphagia, Denies heartburn, Denies diarrhea, Denies nausea, Denies odynophagia and Denies vomiting Denies hematuria, Denies difficulty urinating, Denies dysuria, Denies urinary frequency and Denies urinary urgency Musc Details: recurrent pain over the left antecubital fossa - see HPI for details Denies back pain, Reports arthralgias (on and off over the antecubital fossa of the L elbow), Denies joint swelling, Denies muscle weakness and Denies neck pain Skin/Breast Denies change in pigmentation, Denies lesions, Denies rash and Denies unusual bruising Neuro Denies dizziness, Denies headache(s), Denies paresthesias and Denies weakness Endo Denies fatigue and Denies palpitations Aller/Immun Denies itchy eyes and Denies wheezing Physical exam (Primary Care) Vital Signs: Last Vital Signs Temp 97.1 F 06/08/25 13:39 Pulse 103 H 06/08/25 13:39 BP 120/72 06/08/25 13:39 Pulse Ox 92 06/08/25 13:39 Oxygen Delivery Method Room Air 06/08/25 13:39 BMI result Body Mass Index 41.1 Tobacco/Smoking Status: Tobacco use Status Tobacco use date assessed 06/08/25 06/08/25 13:44 Patient Tobacco Use Status Never used Tobacco 06/08/25 13:44 e-Cigarette/Vaping Use Never Used 06/08/25 13:44 Thrive Assessment: Date of Thrive Assessment Date Thrive assessed 02/02/25 06/08/25 13:44 Currently or been in a relationship where the following occur: I choose not to answer Const General: no acute distress, alert and awake Orientation/consciousness: patient oriented x3 HENMT Head: Yes normocephalic and Yes atraumatic Ears: external ears normal, TM's normal bilaterally and EAC's normal General nose exam: No nasal discharge present Face and sinus: Yes normal facial exam and Yes sinuses nontender Teeth and gingiva: dentition normal Throat: Yes posterior oropharynx normal and Yes tonsils normal (no TP congestion) Eyes Eyelids: Yes eyelids normal Conjunctivae: conjunctivae normal Pupils: Equal, round and reactive pupils present EOM: EOMs intact bilaterally Neck Neck: Yes supple and No lymphadenopathy Thyroid: Thyroid normal Resp Auscultation: clear to auscultation bilaterally, no rales and no wheezes Cardio Rate: regular rate Rhythm: regular rhythm Heart sounds: no murmurs GI Palpation (GI): Soft to palpation, nontender and No hepatosplenomegaly present Auscultation: normal bowel sounds General: Yes no CVA tenderness Back/Spine/Pelvis Back: no CVA tenderness Thoracic/Lumbar Spine: thoracic and lumbar spine normal to inspection Skin Lesions: no lesions Rashes: no rashes Neuro General: patient oriented x3, moves all extremities, no focal motor deficits and CN's II-XI intact bilaterally Cranial nerves: Yes Equal, round and reactive pupils present Cognition (Neuro): normal cognition Gait exam (Neuro): Normal gait present Extrem Other: NO tenderness elicited on exam of his left elbow/left antecubital fossa today General: Yes no clubbing, cyanosis or edema Coding Level of Care Code Est Pt Prev Care 40-64y(59581) Diagnoses Annual physical exam Z00. Pure hypercholesterolemia E78.00 Pain in left arm M79.602 Vitamin D deficiency E55.9 Morbid obesity with BMI of 40.0-44.9, adult E66.01; Z68.41 Assessment & Plan Assessment & Plan (1) Annual physical exam: Code(s): Z00.00 - Encounter for general adult medical examination without abnormal findings Category: Medical Plan: Check labs MAYA to complete his physical exam today - labs have been previously ordered (2) Pure hypercholesterolemia: Code(s): E78.00 - Pure hypercholesterolemia, unspecified Category: Medical Plan: Will have patient go and get his labs and fasting lipids rechecked MAYA Reinforced dietary restrictions Continue Atorvastatin 10 mg QD Will have patient recheck his labs and fasting lipids again in 4 months for follow-up (3) Pain in left arm: Code(s): M79.602 - Pain in left arm Category: Medical Plan: His left antecubital fossa pain/symptoms are not reproducible on exam today Have advised that his symptoms are likely musculoskeletal in etiology, possibly tendinitis caused by overuse from his job activities Have recommended that he try to reduce the repetitive tasks for about two weeks to allow for the inflammation in his left antecubital fossa to heal, along with continuing warm compresses and Ibuprofen PRN Advised that we can refer him to physical therapy if his symptoms persist or get worse (4) Vitamin D deficiency: Code(s): E55.9 - Vitamin D deficiency, unspecified Category: Medical Plan: Continue Vitamin D3 2000 units QD (5) Morbid obesity with BMI of 40.0-44.9, adult: Code(s): E66.01 - Morbid (severe) obesity due to excess calories; Z68.41 - Body mass index [BMI] 40.0-44.9, adult Category: Medical Plan: Reinforced diet/exercise as tolerated/lose weight - he has gained almost 25 pounds in the past 4 months Plan Follow up in 4 months Orders: Orders Complete Blood Count Auto Diff 10/06/25 D64.9 - Anemia, unspecified Comprehensive [place]. Panel Fast 10/06/25 E78.00 - Pure hypercholesterolemia, unspecified TSH reflex Free T4 10/06/25 E78.00 - Pure hypercholesterolemia, unspecified Vitamin D 25-OH Total 10/06/25 E55.9 - Vitamin D deficiency, unspecified Lipid Panel 10/06/25 E78.00 - Pure hypercholesterolemia, unspecified UA CC w/rflx Micro + Cult 10/06/25 R30.0 - Dysuria
[2025-06-08 13:39] VITALS: BP 120/72; PULSE 103; TEMP 36.2; O2SAT 92; BMI 41.1
== END 2025-06-08 14:14 | disposition home or self-care (01) ==
LOC: HO.HMCH 12:56
PROVIDERS: PCP Internal Medicine; Visit Provider Internal Medicine
DX: Z00.00 Encounter for general adult medical examination without abnormal findings (principal); E78.00 Pure hypercholesterolemia, unspecified; E66.01 Morbid (severe) obesity due to excess calories; Z68.41 Body mass index [BMI] 40.0-44.9, adult; M79.602 Pain in left arm; E55.9 Vitamin D deficiency, unspecified